=== PATIENT | male | born 1950 | race Caucasian/White ===

== ENCOUNTER → 2023-06-22 08:15 | Outpatient (REF) | payer MEDICARE, OTHER, SELFPAY | LOC: RAD 08:15 | PROVIDERS: ATTENDING PHYSICIAN Otolaryngology; FAMILY PHYSICIAN Family Medicine | DX: E04.1 Nontoxic single thyroid nodule (principal) | CPT/HCPCS: 76536 ==

== ENCOUNTER → 2023-07-05 10:35 | Outpatient (REF) | payer MEDICARE, OTHER, SELFPAY | LOC: RAD 10:35 | PROVIDERS: ATTENDING PHYSICIAN Podiatrist Foot & Ankle Surgery; FAMILY PHYSICIAN Family Medicine | DX: I82.402 Acute embolism and thrombosis of unspecified deep veins of left lower extremity (principal); M86.172 Other acute osteomyelitis, left ankle and foot; I82.891 Chronic embolism and thrombosis of other specified veins | CPT/HCPCS: 73630; 93971 ==

== ENCOUNTER → 2023-07-14 07:22 | Outpatient (REF) | payer MEDICARE, OTHER, SELFPAY ==
[2023-07-14 07:50] VITALS: BP 152/79; BP_SYST 73
== END ==
LOC: RADI 07:22
PROVIDERS: ATTENDING PHYSICIAN Otolaryngology; FAMILY PHYSICIAN Family Medicine
DX: E04.1 Nontoxic single thyroid nodule (principal)
CPT/HCPCS: 88173; 10005

== ENCOUNTER 2023-10-26 06:26 | Day surgery (SDC) | payer MEDICARE, OTHER, SELFPAY ==
[2023-10-19 08:34] VITALS: BMI 32.9
--- NOTE | 2023-10-20 09:55 | PTCARENOTE ---
Glucose 54, office made aware.
--- NOTE | 2023-10-20 13:58 | PTCARENOTE ---
Abn Glucose, Dr. Mccarthy notified. Dr. Mccarthy to place order to repeat glucose day of surgery.
[2023-10-26] VITALS (9 sets, daily range): BP systolic 138–170; BP diastolic 73–86
[2023-10-26 11:40] LABS: Glucose - Point of Care 88 mg/dl (70-99)
[2023-10-26] MEDS: HEPARIN 5000 UNITS SC (11:44)
[2023-10-26] MEDS: TYLENOL 1000 MG PO (11:46)
[2023-10-26] MEDS: NEURONTIN 300 MG PO (11:46)
[2023-10-26] MEDS: NORMOSOL-R 1000 IV (11:48)
[2023-10-26 13:22] LABS: Glucose - Point of Care 73 mg/dl (70-99)
[2023-10-26 14:01] LABS: Glucose - Point of Care 101 mg/dl (70-99)
--- NOTE | 2023-10-26 14:19 | OR.RPT ---
Operative Report
Operative Report
PATIENT NAME: Bobby Dominguez
DATE OF : 1950
DATE OF OPERATION: October 26, 2023
PREOPERATIVE DIAGNOSIS: Right Thyroid Mass - E041
POSTOPERATIVE DIAGNOSIS: Same
SURGEON: Al Goins M.D.
OPERATION: Right Total Thyroidectomy & Limited Neck Dissection - 69030
ANESTHESIA: GET
ESTIMATED BLOOD LOSS: 5 cc
DRAINS: None
SPECIMEN: right total thyroid lobe and isthmus and right level paratracheal tissue
COMPLICATIONS:�None
PROCEDURE:
The patient was taken to the operating room and placed in the usual supine position. After adequate general endotracheal anesthesia was established, the patient�s neck was extended, prepped, and draped in the typical sterile fashion. A 5 cm
transcervical incision was made two fingerbreadths above the sternal notch. The skin incision was made with the #15 blade, which was taken through the skin into the subcutaneous tissue. The underlying platysma muscle was divided, and subplatysmal
flaps were created superiorly to the thyroid cartilage and inferiorly to the sternal notch. Strap muscles were identified and at the midline.
Attention was turned to the patient�s right thyroid lobe. The right thyroid lobe was mobilized medially. During this process, the right middle thyroid vein and inferior thyroid artery were dissected and ligated with Ligasure. Next, the right
superior pole was taken down by dissecting and transecting the superior pole vessels with a Ligasure. The right thyroid lobe was mobilized medially. During this process, the right recurrent laryngeal nerve was identified and preserved throughout its
entire course. The right superior and inferior parathyroid glands were identified and preserved. The right thyroid lobe with isthmus was resected off the trachea and sent to the pathology department.
At this time, the right neck dissection was performed. The tissue between the right carotid artery to the trachea into the anterior mediastinum was carefully dissected. The previously identified recurrent laryngeal nerve and parathyroid glands were
preserved. The tissue was removed and sent to the pathology department.
After obtaining adequate hemostasis, the strap muscle was approximated with #3-0 Vicryl in a running fashion, and platysma muscles were reapproximated with #3-0 Vicryl in an interrupted fashion, and the skin was approximated with #4-0 Monocryl in a
running subcuticular fashion. Steri-strips and sterile dressings were placed. The patient tolerated the procedure well. The final instrument, needle, and sponge counts were correct.
== END 2023-10-26 15:45 | disposition home or self-care (01) ==
LOC: SDS 06:26
PROVIDERS: ATTENDING PHYSICIAN Surgery; FAMILY PHYSICIAN Family Medicine
DX: E04.1 Nontoxic single thyroid nodule (principal)
CPT/HCPCS: 60252; 88307; 82962

== ENCOUNTER → 2024-08-29 10:16 | Outpatient (REF) | payer MEDICARE, OTHER, SELFPAY | LOC: RAD 10:16 | PROVIDERS: ATTENDING PHYSICIAN Physician Assistant | DX: G89.29 Other chronic pain (principal) | CPT/HCPCS: 72110 ==